=== PATIENT | male | born 1995 | race Caucasian/White ===

== ENCOUNTER 2016-11-12 17:38 | Emergency (ER) | payer OTHER ==
[~2016-11-12] VITALS: Ht 172.7 cm; Wt 65.2 kg
[2016-11-12 17:42] VITALS: TEMP 36.6; Ht 172.7 cm; Wt 65.2 kg
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
[2016-11-12] MEDS ORDERED: TRAM-10 PO (18:57)
[2016-11-12 19:10] VITALS: BP 139/75; PULSE 77; O2SAT 97
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
== END 2016-11-12 19:11 | disposition home or self-care (01) ==
LOC: C.EDB 17:41 → C.EDD 19:11
DX: S83.411A Sprain of medial collateral ligament of right knee, initial encounter (principal); V28.0XXA Motorcycle driver injured in noncollision transport accident in nontraffic accident, initial encounter; Z87.01 Personal history of pneumonia (recurrent)